=== PATIENT | female | born 1940 ===

== ENCOUNTER 2020-03-30 18:54 | Observation (INO) ==
[2020-03-30] MEDS ORDERED: SODIUM CHLORIDE 0.9% 500 ML IV STA (19:36)
[2020-03-30] MEDS ORDERED: ENOXAPARIN 100 MG/ML SYRINGE SUBCUT STA (19:36)
[2020-03-30] MEDS ORDERED: dilTIAZem Drip 125 MG/125 ML PREMIX IV SCH (20:00)
[2020-03-30 20:44] LABS: Basophils % 0.3 % (0.0-0.8); Eosinophils # 0.1 10*3/uL (0.0-0.87); Hematocrit 36.2 VOL% (35.7-47.0); Hemoglobin 12.2 GM/DL (12.0-16.0); Immature Granulocytes % 0.1 %; Immature Granulocytes Absolute 0.01 #; Lymphocytes # 1.7 10*3/uL (1.4-4.0); Lymphocytes % 24.7 % (21.3-54.2); Mean Corpuscular HGB Conc 33.7 GM/DL (32-36); Mean Corpuscular Volume 82.3 FL (87-102); Mean Platelet Volume 9.6 FL (9.6-12.0); Neutrophils % 66.9 % (38.7-73.9); Platelet Count 253 T/CUMM (130-400); White Blood Count 6.7 T/CUMM (4-12)
[2020-03-30 20:45] LABS: Barbiturates Screen,Urine Negative (Negative); Benzodiazepines Screen,Urine Negative (Negative); Cannabinoid Screen,Urine Negative (Negative); Opiate Screen,Urine Negative (Negative); Phencyclidine Screen,Urine Negative (Negative)
[2020-03-30 20:59] LABS: Albumin 3.4 G/DL (3.4-5.0); Bilirubin,Total 0.4 MG/DL (0.2-1.0); Calcium 9.1 MG/DL (8.5-10.1); INR 1.1; Osmolality,Calculated 287.5 MOS/KG (273-304); PT Patient Result 11.4 SECS (9.8-11.9); Thyroid Stimulating Hormone 2.27 uIU/ml (0.358-3.74); Total Protein 7.4 G/DL (6.4-8.3)
[2020-03-30] MEDS ORDERED: DILTIAZEM 30 MG TABLET PO ONE (21:20)
[2020-03-30] MEDS ORDERED: FAMOTIDINE 20 MG TABLET PO STA (21:39)
[2020-03-30] MEDS ORDERED: diphenhydrAMINE CAP 25 MG CAPSULE PO PRN (22:02)
[2020-03-30] MEDS ORDERED: guaiFENesin/DM ER 600-30 MG TABLET PO PRN (22:02)
[2020-03-30] MEDS ORDERED: ACETAMINOPHEN 325 MG TABLET PO PRN (22:02)
[2020-03-30] MEDS ORDERED: NICOTINE 21 MG/24 HR PATCH TRANSDERM PRN (22:02)
[2020-03-30] MEDS ORDERED: SIMETHICONE CHEW 125 MG TABLET PO PRN (22:02)
[2020-03-30] MEDS ORDERED: MORPHINE 4 MG/1 ML VIAL IV PRN (22:02)
[2020-03-30] MEDS ORDERED: GLUCAGON 1 MG VIAL IM PRN ×2 (22:02)
[2020-03-30] MEDS ORDERED: PROMETHAZINE 25 MG/1 ML VIAL IM PRN (22:02)
[2020-03-30] MEDS ORDERED: DEXTROSE 50% 25 GM/50 ML VIAL IV PRN ×2 (22:02)
[2020-03-30] MEDS ORDERED: ONDANSETRON 4 MG/2 ML VIAL IV PRN (22:02)
[2020-03-31] MEDS: hydrALAZINE 20 MG/1 ML VIAL IV PRN (06:24)
[2020-03-31 07:11] LABS: Albumin 3.1 G/DL (3.4-5.0); Bilirubin,Total 0.5 MG/DL (0.2-1.0); Calcium 8.8 MG/DL (8.5-10.1); Osmolality,Calculated 292.4 MOS/KG (273-304); Total Protein 6.6 G/DL (6.4-8.3)
[2020-03-31] MEDS ORDERED: captopriL 25 MG TABLET PO SCH (09:00)
[2020-03-31] MEDS: FOLIC ACID 1 MG TABLET PO SCH (09:29)
[2020-03-31] MEDS: PANTOPRAZOLE 40 MG VIAL IV SCH ×2 (09:29→22:18)
[2020-03-31] MEDS: GABAPENTIN 100 MG CAPSULE PO SCH (09:29)
[2020-03-31] MEDS: ASPIRIN EC 81 MG TABLET PO SCH (09:29)
[2020-03-31] MEDS: DOCUSATE SODIUM 100 MG CAPSULE PO SCH ×4 (09:29→22:22)
[2020-03-31] MEDS: SENNA 8.6 MG TABLET PO SCH (09:29)
[2020-03-31] MEDS: MULTIVITAMIN (CENTRUM) TABLET PO SCH (09:29)
[2020-03-31] MEDS ORDERED: METOPROLOL TARTRATE 25 MG TABLET PO SCH (09:33)
[2020-03-31] MEDS: INSULIN LISPRO 100 UNIT/ML SUBCUT SCH ×4 (09:34→22:17)
[2020-03-31] MEDS: ASCORBIC ACID 500 MG TABLET PO SCH ×2 (09:40→22:17)
[2020-03-31 10:31] LABS: Troponin I < 0.015 NG/ML (0.00-0.045)
[2020-03-31 13:29] LABS: Troponin I < 0.015 NG/ML (0.00-0.045)
[2020-03-31 14:46] LABS: Risk Ratio 3.19; VLDL CHOLESTEROL 62.2 MG/DL
[2020-03-31] MEDS: SODIUM CHLORIDE 0.9% 1,000 ML IV SCH (15:18)
[2020-03-31] MEDS: NIACIN 500 MG TABLET PO SCH (18:19)
[2020-03-31] MEDS: SIMVASTATIN 20 MG TABLET PO SCH (22:17)
[2020-03-31] MEDS: FAMOTIDINE 20 MG TABLET PO SCH (22:17)
[2020-03-31] MEDS: carvediloL 3.125 MG TABLET PO SCH (22:17)
[2020-03-31] MEDS: APIXABAN 5 MG TABLET PO SCH (22:17)
[2020-03-31] MEDS: INSULIN GLARGINE 100 UNIT/ML SUBCUT SCH (22:18)
[2020-04-01] MEDS: SODIUM CHLORIDE 0.9% 1,000 ML IV SCH ×2 (04:41→17:40)
[2020-04-01] MEDS: hydrALAZINE 20 MG/1 ML VIAL IV PRN ×2 (05:56→17:41)
[2020-04-01 07:59] LABS: Basophils % 0.6 % (0.0-0.8); Eosinophils # 0.1 10*3/uL (0.0-0.87); Eosinophils % 1.7 % (0.00-10.9); Hemoglobin 11.7 GM/DL (12.0-16.0); Immature Granulocytes % 0.4 %; Immature Granulocytes Absolute 0.02 #; Lymphocytes # 1.6 10*3/uL (1.4-4.0); Lymphocytes % 30.2 % (21.3-54.2); Mean Corpuscular HGB Conc 34.4 GM/DL (32-36); Mean Corpuscular Volume 82.5 FL (87-102); Mean Platelet Volume 9.5 FL (9.6-12.0); Monocytes % 5.5 % (1.7-12.7); Neutrophils % 61.6 % (38.7-73.9); Platelet Count 249 T/CUMM (130-400); Red Blood Count 4.12 MC/CUMM (3.8-5.5); Red Cell Distribution Width 13.2 % (9.3-17.3); White Blood Count 5.2 T/CUMM (4-12)
[2020-04-01 08:19] LABS: Calcium 8.5 MG/DL (8.5-10.1); Osmolality,Calculated 287.4 MOS/KG (273-304)
[2020-04-01] MEDS ORDERED: cloNIDine 0.2 MG/24 HR PATCH TRANSDERM SCH (09:00)
[2020-04-01] MEDS: PANTOPRAZOLE 40 MG VIAL IV SCH ×2 (09:09→23:08)
[2020-04-01] MEDS: INSULIN LISPRO 100 UNIT/ML SUBCUT SCH ×4 (09:10→22:02)
[2020-04-01] MEDS: MULTIVITAMIN (CENTRUM) TABLET PO SCH (09:11)
[2020-04-01] MEDS: ASPIRIN EC 81 MG TABLET PO SCH (09:12)
[2020-04-01] MEDS: APIXABAN 5 MG TABLET PO SCH ×2 (09:12→21:58)
[2020-04-01] MEDS: OLMESARTAN 20 MG TABLET PO SCH (09:12)
[2020-04-01] MEDS: hydroCHLOROthiazide 12.5 MG CAPSULE PO SCH (09:12)
[2020-04-01] MEDS: carvediloL 3.125 MG TABLET PO SCH ×2 (09:12→21:59)
[2020-04-01] MEDS: DOCUSATE SODIUM 100 MG CAPSULE PO SCH ×4 (09:12→23:08)
[2020-04-01] MEDS: FOLIC ACID 1 MG TABLET PO SCH (09:12)
[2020-04-01] MEDS: SENNA 8.6 MG TABLET PO SCH (09:12)
[2020-04-01] MEDS: GABAPENTIN 100 MG CAPSULE PO SCH (09:12)
[2020-04-01] MEDS: ASCORBIC ACID 500 MG TABLET PO SCH ×2 (09:12→22:00)
[2020-04-01] MEDS: NIACIN 500 MG TABLET PO SCH (18:23)
[2020-04-01] MEDS: FAMOTIDINE 20 MG TABLET PO SCH (21:59)
[2020-04-01] MEDS: SIMVASTATIN 20 MG TABLET PO SCH (22:01)
[2020-04-01] MEDS: INSULIN GLARGINE 100 UNIT/ML SUBCUT SCH (22:04)
[2020-04-02 06:00] LABS: Basophils % 0.5 % (0.0-0.8); Eosinophils # 0.1 10*3/uL (0.0-0.87); Eosinophils % 2.3 % (0.00-10.9); Hematocrit 36.1 VOL% (35.7-47.0); Hemoglobin 11.8 GM/DL (12.0-16.0); Immature Granulocytes % 0.2 %; Immature Granulocytes Absolute 0.01 #; Lymphocytes # 1.8 10*3/uL (1.4-4.0); Lymphocytes % 33.1 % (21.3-54.2); Mean Corpuscular HGB Conc 32.7 GM/DL (32-36); Mean Corpuscular Volume 84.5 FL (87-102); Mean Platelet Volume 9.8 FL (9.6-12.0); Monocytes % 7.4 % (1.7-12.7); Neutrophils % 56.5 % (38.7-73.9); Platelet Count 271 T/CUMM (130-400); Red Blood Count 4.27 MC/CUMM (3.8-5.5); Red Cell Distribution Width 13.3 % (9.3-17.3); White Blood Count 5.6 T/CUMM (4-12)
[2020-04-02 06:29] LABS: Calcium 8.5 MG/DL (8.5-10.1); Osmolality,Calculated 288.3 MOS/KG (273-304)
[2020-04-02] MEDS: SODIUM CHLORIDE 0.9% 1,000 ML IV SCH (07:19)
[2020-04-02] MEDS: INSULIN LISPRO 100 UNIT/ML SUBCUT SCH ×2 (08:46→12:39)
[2020-04-02] MEDS: GABAPENTIN 100 MG CAPSULE PO SCH (08:47)
[2020-04-02] MEDS: hydroCHLOROthiazide 12.5 MG CAPSULE PO SCH (08:47)
[2020-04-02] MEDS: PANTOPRAZOLE 40 MG VIAL IV SCH (08:47)
[2020-04-02] MEDS: ASPIRIN EC 81 MG TABLET PO SCH (08:48)
[2020-04-02] MEDS: OLMESARTAN 20 MG TABLET PO SCH (08:48)
[2020-04-02] MEDS: DOCUSATE SODIUM 100 MG CAPSULE PO SCH ×2 (08:49)
[2020-04-02] MEDS: ASCORBIC ACID 500 MG TABLET PO SCH (08:49)
[2020-04-02] MEDS: MULTIVITAMIN (CENTRUM) TABLET PO SCH (08:49)
[2020-04-02] MEDS: FOLIC ACID 1 MG TABLET PO SCH (08:50)
[2020-04-02] MEDS: APIXABAN 5 MG TABLET PO SCH (08:50)
[2020-04-02] MEDS: SENNA 8.6 MG TABLET PO SCH (08:50)
[2020-04-02] MEDS: carvediloL 3.125 MG TABLET PO SCH (08:50)
[2020-04-02 12:20] VITALS: BP 199/75
== END 2020-04-02 13:03 | disposition home or self-care (01) ==
LOC: EDUNIT# → EDBD → N.ED 18:54 → N.EDINP 18:54 → SUATTDRO 22:02 → N.TELES 22:50
PROVIDERS: ADMIT Internal Medicine; ATTEND Family Medicine